=== PATIENT | male | born 1975 | race Caucasian/White ===

== ENCOUNTER → 2021-08-09 10:13 | Outpatient (BNVA) | payer OTHER, SELFPAY | PROVIDERS: Visit Provider Nurse Practitioner Family | DX: R10.31 Right lower quadrant pain (principal) | CPT/HCPCS: 80053; 85025 ==

== ENCOUNTER 2021-11-07 08:38 | Outpatient (CLI) | payer OTHER, SELFPAY ==
--- NOTE | 2021-11-07 08:00 | NM_ITS ---
WS: [id number] NUCLEAR MEDICINE HIDA SCAN WITH GALLBLADDER EJECTION FRACTION HISTORY: RUQ ABDOMINAL PAIN COMPARISON: Gallbladder ultrasound 09/18/2021 TECHNIQUE: The patient was intravenously injected with 7.0 mCi of TC99m Mebrofenin. Immediate imaging over the right upper quadrant was followed by 5 minute image and additional images for a total of 60 minutes. Normal uptake of radiotracer throughout the liver. Activity identified in the gallbladder at 15 minutes and well distended by 60 minutes. Activity in the proximal small bowel was seen by 30 minutes. Good washout of the radiotracer from the liver by 60 minutes. The patient then drank 8 ounces of Ensure Plus. Ejection fraction at 60 minutes was 15%. Normal GB ej ection fraction is 35-75%. Post fatty meal symptoms: None. NM/NM hepatobiliary w phar* [id number] IMPRESSION: 1. No cystic or common bile duct obstruction. 2. Abnormal gallbladder ejection fraction. Consider chronic cholecystitis.
== END 2021-11-07 08:39 | disposition home or self-care (01) ==
PROVIDERS: PCP Family Medicine; Visit Provider Family Medicine
DX: R10.11 Right upper quadrant pain (principal)
CPT/HCPCS: 78227; A9537

== ENCOUNTER → 2021-11-13 09:09 | Outpatient (BNVA) | payer OTHER, SELFPAY | PROVIDERS: PCP Family Medicine; Visit Provider Nurse Practitioner Family | DX: N20.0 Calculus of kidney (principal); N39.0 Urinary tract infection, site not specified; R30.0 Dysuria | CPT/HCPCS: 74018 ==

== ENCOUNTER 2021-11-15 15:14 | Outpatient (CLI) | payer OTHER, SELFPAY ==
--- NOTE | 2021-11-15 15:22 | XR_ITS ---
WS: [id number] Exam: XR KUB [id number] Date/Time of Exam: 11/15/2021 3:22 PM Reason For Exam: STONES No bowel obstruction or free air. Calcifications superimpose the left kidney and may represent renal stones. No sign of organ enlargement. Bony structures are intact. Nonspecific pelvic calcifications. XR/XR KUB [id number] IMPRESSION: 1. Calcifications superimpose left kidney and may represent renal stones. 2. No acute abdominal process.
== END 2021-11-15 15:15 | disposition home or self-care (01) ==
PROVIDERS: PCP Family Medicine; Visit Provider Urology
DX: N20.0 Calculus of kidney (principal); N39.0 Urinary tract infection, site not specified
CPT/HCPCS: 74018; 81003

== ENCOUNTER 2021-11-16 08:27 | Outpatient (CLI) | payer OTHER, SELFPAY ==
--- NOTE | 2021-11-16 | SCC_ITS ---
Procedure done: 1. Cystoscopy, LEFT: Retrograde, ureteroscopy, laser, stent?ureteral stone 2. Left ureteroscopy with laser lithotripsy, renal interpolar stone 70.4 seconds of fluoroscopic guidance, for a cumulative dose of 16.75 mGy, was provided to Dr. Null by the radiology department. C-arm images of the abdomen were saved for the patient's permanent record. [facility]
--- NOTE | 2021-11-16 10:00 | CT_ITS ---
WS: [id number] CT ABDOMEN AND PELVIS NONCONTRAST HISTORY: Urolithiasis, left-sided pain. TECHNIQUE: Imaging performed through the abdomen and pelvis. Coronal and sagittal reformats are submi tted. All CT scans at [facility] use at least one of these dose optimization techniques: auto mated exposure control; mA and/or kV adjustment per patient size (includes targeted exams where dose is matched to clinical indication); or iterative reconstruction. DLP: 1144.05 mGy.cm COMPARISON: None available. Lower thorax: Lung bases are clear. Visualized heart is normal. No hiatal hernia. Liver: Liver is normal size. There are numerous scattered hypoechoic lesions within the liver. These are too small to characterize on this unenhanced study but probably represent cysts. These are very s mall and scattered. Additional benign granuloma in the central liver. Gallbladder: Normal gallbladder. Pancreas: Normal size and attenuation. Normal pancreatic duct. No pancreatitis or mass. Spleen: Normal. Adrenal glands: Normal. No mass. Right kidney: Normal size kidney with no mass or hydronephrosis. Left kidney: Normal size kidney. Mild dilatation of the LEFT renal pelvis and ureter. At the L4-5 dis c level is a 4.6 mm ureteral calcification causing the mild obstruction of the kidney. Ureter distall y is normal caliber. Additional nonobstructing 5 mm calcification in the renal pelvis. There is a 2 m m calcification which is nonobstructing in the lower pelvis. Slightly lobulated 2.4 x 1.7 cm cyst fro m the mid kidney. Aorta: Mild atherosclerosis abdominal aorta with no aneurysm. No free fluid, intraperitoneal air or significant lymphadenopathy. GI tract: Normal appendix. No GI tract obstruction. There are several diverticula in the distal colon without acute diverticulitis. Abdominal wall: Negative. No hernia. Pelvis: Normal. Osseous structures: Unremarkable. CT/CT kidney stone [id number] IMPRESSION: 1. Mild LEFT hydroureteronephrosis secondary to a 4.6 mm calcification in the mid ureter. 2. Additional nonobstructing calcifications LEFT kidney and a small LEFT renal cyst. 3. Normal appendix.
== END 2021-11-16 08:28 | disposition home or self-care (01) ==
PROVIDERS: PCP Family Medicine; Visit Provider Urology
DX: N20.1 Calculus of ureter (principal); R10.9 Unspecified abdominal pain; N13.30 Unspecified hydronephrosis; N20.0 Calculus of kidney
CPT/HCPCS: 74176

== ENCOUNTER 2021-11-16 10:28 | Day surgery (SDC) | payer OTHER, SELFPAY ==
[2021-11-16] VITALS (7 sets, daily range): BP systolic 123–144; BP diastolic 86–97; PULSE 60–84; RESP 12–19; TEMP 36.3–36.6; O2SAT 95–100; BMI 26.1
--- NOTE | 2021-11-16 10:44 | SC_ITS ---
WS: [id number] Exam: C-arm FL for Urology Date/Time of Exam: 11/16/2021 10:44 AM Reason For Exam: Preoperative: Ureteroscopy left mid ureteral stone Anterior posterior Limited C-arm images of the left abdomen and pelvis are submitted for evaluation. A limited left retrograde pyelogram has been performed. A persistent ureteral filling defect is seen at about the level of the L5 and most likely represents the reported calculus in the mid left ureter. A ureteroscope is visualized in the left renal collecti ng system as well as a guidewire. No other significant finding on this limited series.
--- NOTE | 2021-11-16 11:04 | ANES.PREANE2 ---
Pre-Anesthetic Assessment Height/Weight: Height 1.75 m Weight 80.286 kg Temp Pulse Resp BP Pulse Ox O2 Del Method 97.6 F 60 18 134/94 100 11/16/21 10:52 11/16/21 10:52 11/16/21 10:52 11/16/21 10:52 11/16/21 10:52 11/16/21 10:52 Preop Diagnosis: Ureteral stone with severe refractory renal colic Operation Date: 11/16/21 12:00 Proposed Procedures p cystoscopy left retrograde ureteroscopy laser stent [id number] modifier 26 45984,N20.9(Not Applicable) - Mauri Null MD s Retrograde Pyelogram(Left) - MD chase Cochran Ureteroscopy(Not Applicable) - Mauri Null MD s Laser Lithotripsy(Left) - Mauri Null MD s Ureteral Stent Placement(Left) - Mauri Null MD Familial anesthetic complications: None Was Beta Jayson taken within 24 hours: N/A Was Clonidine taken within 24 hours: N/A Last intake: tea this morning before 0800 Social No alcohol and No tobacco Exam alert, oriented x 3, clear to auscultation bilaterally and regular rate & rhythm Airway Mallampati: Class II Dentition: full CV/HEM Hypertension Metabolic Hyperlipidemia Anesthetic Plan ASA status: 2 Anesthesia: General Risk of > 500 ml blood loss (7ml/kg in children): No Medications/Allergies Home Medications Medication Instructions Recorded Confirmed Last Taken Type albuterol sulfate 90 mcg/actuation 2 puff inhalation QID PRN 04/03/21 11/16/21 Unknown Rx aerosol inhaler (ProAir HFA) shortness of breath or wheezing #8.5 grams budesonide-formoterol HFA 160 2 puff inhalation Q12H #10.2 grams 04/03/21 11/16/21 Unknown Rx mcg-4.5 mcg/actuation aerosol inhaler (Symbicort) cephalexin 500 mg capsule 500 mg PO BID 10 days #20 caps 11/13/21 11/16/21 Unknown Rx ketorolac 10 mg tablet 10 mg PO QID PRN pain 5 days #20 11/13/21 11/16/21 Unknown Rx tabs tamsulosin 0.4 mg capsule (Flomax) 0.4 mg PO BID 30 days #60 caps 11/13/21 11/16/21 Unknown Rx tizanidine 4 mg capsule 4 mg PO TID PRN muscle spasticity 11/13/21 11/16/21 Unknown Rx #90 caps atorvastatin 20 mg tablet 20 mg PO DAILY 11/15/21 11/16/21 Unknown History losartan 100 mg tablet 100 mg PO DAILY 11/15/21 11/16/21 Unknown History trazodone 50 mg tablet 50 mg PO DAILY 11/15/21 11/16/21 Unknown History Allergies Allergy/AdvReac Type Severity Reaction Status Date / Time No Known Allergies Allergy Verified 11/16/21 09:18 [facility] Anesthesia Medical History Urolithiasis Family History Mother Arthritis Father Hypertension Social History Smoking and tobacco status: never smoked Alcohol intake: never Marital status: Current occupational status: employed History of recent travel: No Data Anesthesia Cardiac Studies: No Data to Display
[2021-11-16] MEDS: sodium chloride 0.9% 1,000 ML 30 ML IV (11:23)
[2021-11-16] MEDS: levofloxacin-dextrose 5 % 500 MG/100 ML PREMIX 100 MG IV (12:26)
--- NOTE | 2021-11-16 12:34 | P.HPUD_ITS ---
Surgery/Procedure H&P Update DATE OF PROCEDURE: November 16, 2021 DATE H&P PERFORMED: 11/16/21 H&P UPDATE INFORMATION: I have reviewed H&P completed within last 30 days, I have examined patient prior to procedure, No changes to prior documentation and H&P is in [facility] EMR on date indicated PREOP DIAGNOSIS: Ureteral stone with severe refractory renal colic PLANNED PROCEDURE: Operation Date: 11/16/21 12:00 Proposed Procedures p cystoscopy left retrograde ureteroscopy laser stent [id number] modifier 26 28908,N20.9(Not Applicable) - Mauri Null MD s Retrograde Pyelogram(Left) - MD chase Cochran Ureteroscopy(Not Applicable) - MD chase Cochran Laser Lithotripsy(Left) - MD chase Cochran Ureteral Stent Placement(Left) - Mauri Null MD
--- NOTE | 2021-11-16 12:35 | PM.OP ---
Operative Report Date of procedure: November 16, 2021 Pre-op diagnosis: LEFT mid ureteral stone with refractory obstruction LEFT renal calculus Post-op diagnosis: Same Procedure done: 1. Cystoscopy, LEFT: Retrograde, ureteroscopy, laser, stent?ureteral stone 2. Left ureteroscopy with laser lithotripsy, renal interpolar stone Implants: Left ureteral stent (7 Congolese by 28 cm double-pigtail without string Specimens removed/disposition: Stone fragments sample Pathology: Stone fragments sample Surgeon: Tennille Estimated blood loss: Minimal Urine output: Not measured Complications: None Findings: Anesthesia: General Condition: Stable Disposition: PACU Findings: The left mid ureteral stone was in its expected position and an inflamed portion of the ureter. Easily accessed with rigid ureteroscope, laser, and fragmented. Majority of the fragments were sand with a few small pieces removed with basket. The LEFT RENAL midpole stone was identified easily with flexible ureteroscopy. The stone was larger than the ureteral calculus. It was fragmented into very small pieces mostly sand. Left ureteral stent left indwelling as above Brief History: Goyo is a very pleasant 46-year-old white male who presented with typical left renal colic and on 2 serial KUBs was found to have a calcification at L5 level on the left suspicious for stone in addition to a what appeared to be left interpolar stone in the kidney He was having severe refractory pain that was not easily managed. A CT scan this morning confirmed the diagnosis of stones as described above. He ultimately chose to proceed with intervention Procedure: After urgent evaluation examination and obtaining of informed consent he was taken to the operating suite on 11/16/2021 where general anesthesia was administered without difficulty after appropriate timeout was performed, SCDs confirmed to be functioning, preoperative antibiotics administered, beta-miguel a protocol confirmed. Prepped and draped in usual sterile fashion in dorsolithotomy position paying careful attention to avoiding pressure points. 21 Congolese cystoscope with 30 degree lens was introduced into the urethra meatus and advanced into the bladder under videoscopy. The bladder was systematically examined and found to be within normal limits. An 8 Congolese cone-tip catheter was intubated into the left ureteral orifice for left retrograde ureteropyelogram demonstrating: Normal left distal ureter in course and caliber. There is a filling defect consistent with the stone seen on CT scan and KUBs in the expected area. The ureter proximal to that point was markedly dilated. The calcification confirmed in the kidney on CT scan was easily visible in a midpole calyx. A flexible tip guidewire was then easily advanced up the left ureter bypassing the stone and curling in the area of the upper pole calyx. A second guidewire was passed after the first was secured to the drapes as a safety wire and the second used as a working wire over which was passed a 24 cm ureteral access sheath without difficulty. The offset semirigid ureteroscope was then advanced up the sheath without difficulty to the level of stone. There was some inflammatory change around the stone but nothing terrible. The stone was easily fragmented with a 200 ?m thulium superpulse laser fiber into mostly sand and a few small pieces that were basketed out. The scope was passed to the UPJ. Some more sand was identified from the fragmentation process but no additional stone fragments had migrated proximally. The rigid ureteroscope was then exchanged with a video flexible ureterorenoscope and passed easily into the kidney. There was a lot of sediment and debris from ongoing obstruction. The only stone seen no was in the expected position and interpolar area and a fairly tight calyx. Stone was then completely fragmented with a 200 ?m thulium superpulse laser fiber into very small particles mostly sand with a few tiny pieces. Some of these were removed with a basket. On final inspection there were no residual large fragments. All the different calyces were carefully inspected. Fluoroscopy was utilized to confirm the absence of any identifiable stones. This sheath was backed down to the hub of the flexible ureteroscope and the scope was utilized to carefully inspect the ureter as removed. The ureter was in good shape overall. There was some mild edema where the stone had been located at the L5 area and typical inflammatory changes related to passage of the access sheath. It was decided to leave a stent. The cystoscope was then backloaded over the safety wire and a 7 Congolese by 28 cm double-pigtail stent without string was easily advanced over the guidewire through the cystoscope into appropriate position as confirmed via fluoroscopy and cystoscopy. The bladder was drained and the procedure was completed. He tolerated the procedure well without complications and was awakened in the operating room and returned to the PACU in stable condition. PLANS: 1. Anticipate discharge from outpatient surgery 2. Follow-up in 1 week for cystoscopy and stent removal in the clinic. KUB first
[2021-11-16] MEDS: iohexol 300 mg/mL 50 mL Btl (OR ONLY) XX (12:48)
--- NOTE | 2021-11-16 15:00 | ANE.PACU2 ---
Inpatient post-anesthesia follow up: Airway intact: Yes Vital signs: Temperature 97.9 F Pulse Rate 76 Respiratory Rate 18 Blood Pressure 136/86 Pulse Oximetry 96 Oxygen Delivery Me thod Room Air Oxygen Flow Rate 6 Fraction of Inspir ed Oxygen Hydration adequate: Yes Nausea and vomiting: No Pain level: 2 Mental status: Baseline
[2021-11-24 20:07] LABS: Stone Source LEFT URETER
== END 2021-11-16 15:09 | disposition home or self-care (01) ==
PROVIDERS: PCP Family Medicine; Visit Provider Urology
PROC: 0TJB8ZZ Inspection of Bladder, Via Natural or Artificial Opening Endoscopic (ICD-10-PCS; CPT 52000; principal; 2021-11-16 12:00)
PROC: (CPT 74420; 2021-11-16 12:00)
PROC: 0TJ98ZZ Inspection of Ureter, Via Natural or Artificial Opening Endoscopic (ICD-10-PCS; CPT 52351; 2021-11-16 12:00)
PROC: (CPT 52356; 2021-11-16 12:00)
PROC: (CPT 50605; 2021-11-16 12:00)
DX: N20.1 Calculus of ureter (principal); I10 Essential (primary) hypertension; E78.5 Hyperlipidemia, unspecified
CPT/HCPCS: 52356; 76000; 81003; 82365; 88300; C2625; J1100; J1956; J2405; J2704; J2710; J3010; J3490; J7030

== ENCOUNTER 2021-11-23 09:16 | Outpatient (CLI) | payer OTHER, SELFPAY ==
--- NOTE | 2021-11-23 09:27 | XR_ITS ---
WS: [id number] KUB, AP view, 11/23/2021 Clinical Data: STONES Comparison: KUB, 11/15/2021 Findings: No abnormal intraabdominal masses or calcifications are seen. There is no dilatated small bowel or ev idence of obstruction. There is a left ureteral stent in good position. There is fecal material in the ascending colon. XR/XR KUB [id number] Impression: Left ureteral stent.
== END 2021-11-23 09:17 | disposition home or self-care (01) ==
PROVIDERS: PCP Family Medicine; Visit Provider Urology
DX: N20.9 Urinary calculus, unspecified (principal)
CPT/HCPCS: 74018

== ENCOUNTER → 2021-12-04 11:56 | Outpatient (BNVA) | payer OTHER, SELFPAY | PROVIDERS: PCP Family Medicine; Visit Provider Urology | DX: N20.9 Urinary calculus, unspecified (principal); Z96.0 Presence of urogenital implants | CPT/HCPCS: 81003 ==

== ENCOUNTER 2022-05-23 12:58 | Outpatient (CLI) | payer OTHER, SELFPAY ==
--- NOTE | 2022-05-23 13:38 | XR_ITS ---
WS: [id number] KUB, AP view, 05/23/2022 Clinical Data: Urolithiasis Comparison: KUB, 11/23/2021 Findings: No abnormal intraabdominal masses or calcifications are seen. There is no dilatated small bowel or ev idence of obstruction. The left ureteral stent has been removed. XR/XR KUB [id number] Impression: Negative KUB.
== END 2022-05-23 12:59 | disposition home or self-care (01) ==
LOC: RAD 13:03
PROVIDERS: PCP Family Medicine; Visit Provider Urology
DX: N20.9 Urinary calculus, unspecified (principal)
CPT/HCPCS: 74018; 81003

== ENCOUNTER → 2022-11-26 08:55 | Outpatient (BNVA) | payer SELFPAY | PROVIDERS: PCP Family Medicine; Visit Provider Dermatology | DX: Z01.89 Encounter for other specified special examinations (principal) ==